=== PATIENT | male | born 1980 | race Caucasian/White ===

== ENCOUNTER 2021-08-13 15:44 | Inpatient (IN) | payer OTHER, SELFPAY ==
[2021-08-13] VITALS (10 sets, daily range): BP systolic 140–172; BP diastolic 90–103; PULSE 85–117; RESP 16–22; TEMP 36.6–37.3; O2SAT 93–99; BMI 28.0; BMI 26.3
--- NOTE | 2021-08-13 15:56 | EDS_ITS ---
HPI History of Present Illness Chief Complaint: Trauma Informant: patient Onset/Context/Timing Onset: Today Location of pain/injuries: Right ankle Current Severity: Moderate Maximum Severity: Severe Narrative Narrative: Patient presents via EMS after right ankle injury. Patient was playing baseball and slid into second base fracturing his right ankle. He states initially his foot was laying 90 degrees to the normal axis of the foot. He is in an air splint at the time of arrival to the emergency room. He has been given 100 mcg of fentanyl. Patient denies any other injury. [facility] Medical History (Updated 08/13/21 @ 21:03 by Radha Bishop) High cholesterol Medical History no medical history Home Medications NK 08/13/21 [History Last Taken Unknown] Allergy/AdvReac Type Severity Reaction Status Date / Time No Known Allergies Allergy Verified 08/13/21 15:47 Surgical History H/O hernia repair Surgical History no surgical history Social History Smoking Status: Never smoker ROS ROS ED Constitutional Constitutional ED: Denies chills or fever(s) Eyes Eyes: Denies change in vision ENT ENT ED: Denies sore throat Cardiovascular Cardiovascular: Denies chest pain Respiratory/Chest Respiratory/Chest: Denies cough or dyspnea Gastrointestinal Gastrointestinal: Denies abdominal pain, nausea or vomiting Genitourinary Genitourinary ED: Denies dysuria Musculoskeletal Musculoskeletal: Reports arthralgias; Denies back pain or neck pain Integumentary Denies rash Neurologic Neurologic: Denies headache(s) Allergic/Immunologic Allergic/Immunologic ED: Denies urticaria EXAM Physical Exam Const Vital Signs: 08/13/21 15:45 08/13/21 16:02 08/13/21 17:41 Temperature 98.8 F Temperature Source Oral Pulse Rate 99 117 H Pulse Rate [1 (Initial Baseline)] Pulse Rate [2] Pulse Rate [3] Pulse Rate [4] Respiratory Rate 18 20 H Respiratory Rate [1 (Initial Baseline)] Respiratory Rate [2] Respiratory Rate [3] Respiratory Rate [4] Respiratory Effort Normal Non-Labored Blood Pressure 151/96 H 172/98 H Blood Pressure [3] Blood Pressure [4] Blood Pressure Mean 114 Pulse Ox 97 97 Oxygen Delivery Method Room Air Oxygen Delivery Method [1 (Initial Baseline)] Oxygen Delivery Method [2] Oxygen Delivery Method [3] Oxygen Delivery Method [4] Oxygen Flow Rate (L/min) Oxygen Flow Rate (L/min) [1 (Initial Baseline)] Oxygen Flow Rate (L/min) [2] Oxygen Flow Rate (L/min) [3] Oxygen Flow Rate (L/min) [4] 08/13/21 17:45 08/13/21 18:00 08/13/21 18:05 Temperature Temperature Source Pulse Rate Pulse Rate [1 (Initial Baseline)] 117 H Pulse Rate [2] 106 H Pulse Rate [3] 97 Pulse Rate [4] 95 Respiratory Rate Respiratory Rate [1 (Initial Baseline)] 22 H Respiratory Rate [2] 18 Respiratory Rate [3] 18 Respiratory Rate [4] 17 Respiratory Effort Blood Pressure Blood Pressure [3] 142/92 H Blood Pressure [4] 145/100 H Blood Pressure Mean Pulse Ox Oxygen Delivery Method Nasal Cannula Room Air Oxygen Delivery Method [1 (Initial Baseline)] Nasal Cannula Oxygen Delivery Method [2] Nasal Cannula Oxygen Delivery Method [3] Nasal Cannula Oxygen Delivery Method [4] Nasal Cannula Oxygen Flow Rate (L/min) 2 Oxygen Flow Rate (L/min) [1 (Initial Baseline)] 2 Oxygen Flow Rate (L/min) [2] 2 Oxygen Flow Rate (L/min) [3] 2 Oxygen Flow Rate (L/min) [4] 2 08/13/21 18:10 08/13/21 19:00 08/13/21 19:15 Temperature Temperature Source Pulse Rate 104 H Pulse Rate [1 (Initial Baseline)] Pulse Rate [2] Pulse Rate [3] Pulse Rate [4] Respiratory Rate 17 18 Respiratory Rate [1 (Initial Baseline)] Respiratory Rate [2] Respiratory Rate [3] Respiratory Rate [4] Respiratory Effort Blood Pressure 157/90 H Blood Pressure [3] Blood Pressure [4] Blood Pressure Mean 112 Pulse Ox 98 Oxygen Delivery Method Room Air Room Air Room Air Oxygen Delivery Method [1 (Initial Baseline)] Oxygen Delivery Method [2] Oxygen Delivery Method [3] Oxygen Delivery Method [4] Oxygen Flow Rate (L/min) Oxygen Flow Rate (L/min) [1 (Initial Baseline)] Oxygen Flow Rate (L/min) [2] Oxygen Flow Rate (L/min) [3] Oxygen Flow Rate (L/min) [4] Positive well nourished and well developed General Appearance ED: well developed HEENT atraumatic Eyes PERRL and EOMs intact bilaterally Neck full ROM Chest Wall inspection of chest normal and palpation of chest normal Resp normal respiratory effort and clear to auscultation bilaterally Cardio regular rhythm Rate: regular rate GI normal to inspection, nondistended, normoactive bowel sounds and non-tender Palpation: soft Extremity Extremity Narrative: Right foot rotated laterally. Deformity noted to the medial malleolus. Patient able to wiggle toes. Palpable distal pulse and good cap refill. Neuro oriented x3 Sensorium / Orientation: alert MDM MDM MDM Narrative Medical decision making narrative: Patient made n.p.o. on arrival. Right ankle x-rays obtained. Radiography Diagnostic Testing: Clinical Impression(s) from Imaging Studies Ankle X-Ray 08/13/21 16:05 IMPRESSION: Trimalleolar fracture with tibiotalar joint widening. Electronically Signed: Gregorio Martinez MD ([facility]) at 16:22 EDT , Ankle X-Ray 08/13/21 18:00 IMPRESSION: Improved alignment of the tibiotalar joint since prior study. Fractures are not as well seen with splint in place. Electronically Signed: Gregorio Martinez MD ([facility]) at 18:18 EDT , Treatment and Re-Evaluation Narrative: Right ankle x-ray does confirm trimalleolar ankle fracture per my interpretation. There is significant widening of the mortise joint. Patient is given morphine and Zofran as the fentanyl he was given prehospital is starting to wean. Patient is consented for procedural sedation and splinting. Light sedation given with a total of 60 mg of propofol. Posterior plus sugar-tong splint placed in the right lower extremity. Following splint application patient can wiggle toes and has good cap refill. Repeat x-rays reveal good alignment of the fracture. I spoke with Dr. Menard, on-call for podiatry. She presented to the emergency room to evaluate the patient. She will admit the patient to the hospital with plan to surgically repair his ankle tomorrow. Discharge Plan Dx/Rx/DC Orders Clinical Impression: Closed trimalleolar fracture of ankle Disposition Disposition: Acute Care Hospital [facility] Discharge Date/Time: 08/13/21 20:41
--- NOTE | 2021-08-13 16:05 | RAD_ITS ---
STUDY: X-RAY - RIGHT ANKLE REASON FOR EXAM: Male, 41 years old. PT PLAYING SOFTBALL SLID INTO SECOND BASE INJURING RIGHT ANKLE TECHNIQUE: 3 view(s) of the ankle. COMPARISON: None. FINDINGS: Obliquely oriented fracture of the distal fibula, 5.7 cm above the tibiotalar joint with mild (2.5 mm) displacement. Transverse fracture of the base of the medial malleolus with approximately 4.1 mm of displacement. Osseous density overlying the posterior distal tibia likely represents additional longitudinal fracture. Widening of the tibiotalar joint particularly along the anterior margin. Normal visualized talus and calcaneus. The visualized subtalar, talonavicular, calcaneocuboid and tarsal articulations are normal. Diffuse soft tissue swelling. RAD/Ankle min 3 Views IMPRESSION: Trimalleolar fracture with tibiotalar joint widening. Electronically Signed: Gregorio Martinez MD ([facility]) at 16:22 EDT ,
[2021-08-13] MEDS: Ondansetron 4 MG/2 ML Vial IV (17:32)
[2021-08-13] MEDS: Morphine 4 MG/ML Syringe IV (17:32)
[2021-08-13] MEDS: Propofol 200 MG/20 ML Vial IV BOLUS (17:46)
--- NOTE | 2021-08-13 18:00 | RAD_ITS ---
STUDY: X-RAY - RIGHT ANKLE REASON FOR EXAM: Male, 41 years old. fracture - post splint TECHNIQUE: 2 view(s) of the ankle. COMPARISON: Earlier today FINDINGS: Distal fibular fracture stable alignment. Normal medial and lateral malleoli. Improved alignment of the tibiotalar articulation. The medial malleolus fracture seen previously is not clearly identified. Normal visualized talus and calcaneus. The visualized subtalar, talonavicular, calcaneocuboid and tarsal articulations are normal. Splint material noted. RAD/Ankle 2 Views IMPRESSION: Improved alignment of the tibiotalar joint since prior study. Fractures are not as well seen with splint in place. Electronically Signed: Gregorio Martinez MD ([facility]) at 18:18 EDT ,
--- NOTE | 2021-08-13 19:42 | PCM.HP.STD ---
HPI - General General Date of Admission: 08/13/21 HPI Narrative RADHA SLAUGHTER, is a 41 M who presents for right ankle injury he sustained while sliding into second base earlier today at 15:30 pm. His foot was in a forced dorsiflexion external rotation position upon the ankle at the time of impact. He denies any breaks in the skin. His ankle was immediately reset and a temporary splint and he presented to the emergency room. His pain is controlled at a 3 out of 10 at this time and is aching. He denies lack of sensation. He denies prior claudication. He denies known past medical history however he reports he has not been to a doctor in a long time even for a wellness check. He reports he was previously worked up for anxiety but not currently. He denies known cardiac disease or family cardiac history. He denies prior complications with anesthesia when he had a hernia repaired. [facility] Medical History no medical history Home Medications NK 08/13/21 [History Last Taken Unknown] Allergy/AdvReac Type Severity Reaction Status Date / Time No Known Allergies Allergy Verified 08/13/21 15:47 Surgical History H/O hernia repair Surgical History no surgical history Social History Smoking Status: Never smoker ROS Constitutional Constitutional: Denies chills or fever(s) ENT HEENT: Denies sore throat Cardiovascular Cardiovascular: Reports chest pain; Denies claudication Respiratory/Chest Respiratory/Chest: Denies cough or dyspnea Gastrointestinal Gastrointestinal: Denies nausea or vomiting Genitourinary Genitourinary: Denies dysuria Musculoskeletal Musculoskeletal: Reports extremity pain and joint pain; Denies back pain, numbness, radiating pain into limb or tingling Integumentary Integumentary: Denies wounds Psychiatric Psychiatric: Reports anxiety Allergic/Immunologic Allergic/Immunologic: Denies urticaria Vital Signs Vital Signs Vital Signs: 08/13/21 15:45 08/13/21 16:02 08/13/21 17:41 Temperature 98.8 F Temperature Source Oral Pulse Rate 99 117 H Pulse Rate [1 (Initial Baseline)] Pulse Rate [2] Pulse Rate [3] Pulse Rate [4] Respiratory Rate 18 20 H Respiratory Rate [1 (Initial Baseline)] Respiratory Rate [2] Respiratory Rate [3] Respiratory Rate [4] Respiratory Effort Normal Non-Labored Blood Pressure 151/96 H 172/98 H Blood Pressure [3] Blood Pressure [4] Blood Pressure Mean 114 Pulse Ox 97 97 Oxygen Delivery Method Room Air Oxygen Delivery Method [1 (Initial Baseline)] Oxygen Delivery Method [2] Oxygen Delivery Method [3] Oxygen Delivery Method [4] Oxygen Flow Rate (L/min) Oxygen Flow Rate (L/min) [1 (Initial Baseline)] Oxygen Flow Rate (L/min) [2] Oxygen Flow Rate (L/min) [3] Oxygen Flow Rate (L/min) [4] 08/13/21 17:45 08/13/21 18:00 08/13/21 18:05 Temperature Temperature Source Pulse Rate Pulse Rate [1 (Initial Baseline)] 117 H Pulse Rate [2] 106 H Pulse Rate [3] 97 Pulse Rate [4] 95 Respiratory Rate Respiratory Rate [1 (Initial Baseline)] 22 H Respiratory Rate [2] 18 Respiratory Rate [3] 18 Respiratory Rate [4] 17 Respiratory Effort Blood Pressure Blood Pressure [3] 142/92 H Blood Pressure [4] 145/100 H Blood Pressure Mean Pulse Ox Oxygen Delivery Method Nasal Cannula Room Air Oxygen Delivery Method [1 (Initial Baseline)] Nasal Cannula Oxygen Delivery Method [2] Nasal Cannula Oxygen Delivery Method [3] Nasal Cannula Oxygen Delivery Method [4] Nasal Cannula Oxygen Flow Rate (L/min) 2 Oxygen Flow Rate (L/min) [1 (Initial Baseline)] 2 Oxygen Flow Rate (L/min) [2] 2 Oxygen Flow Rate (L/min) [3] 2 Oxygen Flow Rate (L/min) [4] 2 08/13/21 18:10 08/13/21 19:00 08/13/21 19:15 Temperature Temperature Source Pulse Rate 104 H Pulse Rate [1 (Initial Baseline)] Pulse Rate [2] Pulse Rate [3] Pulse Rate [4] Respiratory Rate 17 18 Respiratory Rate [1 (Initial Baseline)] Respiratory Rate [2] Respiratory Rate [3] Respiratory Rate [4] Respiratory Effort Blood Pressure 157/90 H Blood Pressure [3] Blood Pressure [4] Blood Pressure Mean 112 Pulse Ox 98 Oxygen Delivery Method Room Air Room Air Room Air Oxygen Delivery Method [1 (Initial Baseline)] Oxygen Delivery Method [2] Oxygen Delivery Method [3] Oxygen Delivery Method [4] Oxygen Flow Rate (L/min) Oxygen Flow Rate (L/min) [1 (Initial Baseline)] Oxygen Flow Rate (L/min) [2] Oxygen Flow Rate (L/min) [3] Oxygen Flow Rate (L/min) [4] Weight Weight: 78.8 kg Body Mass Index (BMI) 28.0 Physical Exam Const alert and oriented x3 General Appearance: cooperative HEENT normocephalic Extremity Extremity Narrative: No calf tenderness; negative olmos sign bilateral palpable dp pulse bilateral and palpable left PT Capillary fill time is less than 3 seconds to all 10 digits Mild edema right lower extremity Rectus right lower extremity position is noted with posterior mold splint and sugar-tong in place General Extremity: edema and no tenderness to palpation of joints or extremities; Negative for cyanosis Skin Skin Narrative: No strikethrough or drainage adjacent to splint Per emergency room physician evaluation there were no skin breaks or fracture blisters or skin envelope compromise at the time the fracture was reset and splinted General Skin Exam: Negative for erythema Neuro Neuro Narrative: Epicritic sensation is intact to all digits and forefoot dermatomes equal and symmetrical to bilateral lower extremities Psych cooperative and affect normal Results Radiology Impression Ankle X-Ray 08/13/21 16:05 IMPRESSION: Trimalleolar fracture with tibiotalar joint widening. Electronically Signed: Gregorio Martinez MD ([place]) at 16:22 EDT , Ankle X-Ray 08/13/21 18:00 IMPRESSION: Improved alignment of the tibiotalar joint since prior study. Fractures are not as well seen with splint in place. Electronically Signed: Gregorio Martinez MD ([facility]) at 18:18 EDT , Assessment & Plan Assessment/Plan (1) Closed trimalleolar fracture of ankle: (2) Right ankle pain: PLAN: I reviewed and discussed his case. X-rays demonstrate complex right ankle fracture consistent with try malleolus. There is a fibula fracture above the ankle mortise level, remarkable widening between the tibia and fibula supporting syndesmosis disruption, and medial malleolus oblique fracture. CT scan ordered to confirm pattern for surgical planning. We discussed treatment options and I recommend surgical intervention because this is a very unstable fracture pattern and this will give him his best chance at maintaining a functional limb in the future. His fracture is already been reduced and is secured in a right lower extremity splint; to keep clean and intact until surgery tomorrow. To maintain a nonweightbearing status. To ice and elevate. Pain medications have also been ordered. Preoperative diagnostic data will be ordered including CBC and CMP. He only reports a significant past medical history of prior anxiety, however he reports he has not been to the doctor in a long time. Hospitalist consultation for preoperative assessment will be requested. Preoperative indications, planned procedure, benefits, risk, anticipated healing time and management were reviewed. The patient understands and elects proceed with surgery at this time. No guarantees were made. The patient understands risk and complications include but are not limited to following: pain, swelling, scarring, need for further surgery, tendon contracture, transfer lesion, hardware failure, arthritis, need for further surgery, delayed or nonhealing, infection, blood clot, allergic reaction, loss of limb, function, or life. The informed surgical limb and consent will be signed. He will be n.p.o. at midnight. Fluids ordered preoperative. Anticipated anesthesia is general and regional versus spinal. This case was discussed with anesthesiologist, Dr. Centeno. The surgery is tentatively scheduled for tomorrow 08-14-2021 at 8 AM. I answered all the patient's questions. Please do not hesitate to call if you have any questions. Christine Menard DPM, FACF[facility] [phone]
--- NOTE | 2021-08-13 19:58 | CT_ITS ---
EXAM: CT RIGHT LOWER EXTREMITY WITHOUT INTRAVENOUS CONTRAST, ANKLE CLINICAL INDICATION: ankle fracture TECHNIQUE: Helically acquired images were obtained of the right ankle without intravenous contrast. 2-D reformats were performed by the technologist. This CT exam was performed using one or more of the following dose reduction techniques: automated exposure control, adjustment of the mA and/or kV according to patient size, and/or use of iterative reconstruction technique. This report was created using ebindle report generation technology. RADIATION DOSE: CTDIvol = 19.84 mGy, DLP = 839.29 mGy-cm COMPARISON: X-ray earlier today. FINDINGS: BONES/JOINTS: Nondisplaced fracture the base of the medial malleolus. Nondisplaced fracture of the posterior distal tibia best seen on image 74 of series 602. Obliquely oriented fracture of the distal fibula with medial butterfly fragment (image 71 series 601). Approximately 4.8 mm of displacement. No dislocation. SOFT TISSUES: Diffuse soft tissue swelling medial more than lateral. No radiopaque foreign body. CT/Extremity Lower without Contra IMPRESSION: Trimalleolar fracture, as above. Electronically Signed: Gregorio Martinez MD ([facility]) at 20:51 EDT ,
--- NOTE | 2021-08-13 20:57 | PCM.PN.HOSP ---
Subjective Subjective 41-year-old male presented to the hospital with a right ankle fracture while he was playing baseball and sliding into second base. He has no medical history and takes no medications. His blood pressure is little bit elevated but this is likely secondary to pain Objective Data Objective Data Vital Signs: Vital Signs Temp Pulse Resp BP Pulse Ox 97.8 F 90 18 151/103 H 93 08/13/21 20:06 08/13/21 20:06 08/13/21 20:06 08/13/21 20:06 08/13/21 20:06 Oxygen Flow Rate (L/min) [4] 2 Oxygen Flow Rate (L/min) [3] 2 Oxygen Flow Rate (L/min) [2] 2 Oxygen Flow Rate (L/min) [1 ( 2 Initial Baseline)] Oxygen Flow Rate (L/min) 2 Oxygen Delivery Method [4] Nasal Cannula Oxygen Delivery Method [3] Nasal Cannula Oxygen Delivery Method [2] Nasal Cannula Oxygen Delivery Method [1 ( Nasal Cannula Initial Baseline)] Oxygen Delivery Method Room Air Weight: 163 lb 2.273 oz Body Mass Index (BMI) 26.3 Lab / Micro Data Result Diagrams: 08/13/21 20:49 08/13/21 20:49 Radiography Diagnostic Testing: Radiology Impression Ankle X-Ray 08/13/21 16:05 IMPRESSION: Trimalleolar fracture with tibiotalar joint widening. Electronically Signed: Gregorio Martinez MD ([place]) at 16:22 EDT , Ankle X-Ray 08/13/21 18:00 IMPRESSION: Improved alignment of the tibiotalar joint since prior study. Fractures are not as well seen with splint in place. Electronically Signed: Gregorio Martinez MD ([facility]) at 18:18 EDT , Lower Extremity CT 08/13/21 19:58 IMPRESSION: Trimalleolar fracture, as above. Electronically Signed: Gregorio Martinez MD ([facility]) at 20:51 EDT , Physical Exam Const alert and oriented x3 General Appearance: cooperative HEENT normocephalic and moist oral mucous membranes Eyes PERRL, EOMs intact bilaterally and conjunctivae normal Neck supple and no JVD Resp normal respiratory effort, no retractions, no use of accessory muscles and clear to auscultation bilaterally Auscultation: Negative for crackles, rales, rhonchi or wheezes Cardio regular rate, regular rhythm, S1 normal heart sound, S2 normal heart sound and no murmurs GI soft to palpation, non-tender and non-distended; Negative for hepatosplenomegaly Extremity no clubbing, cyanosis or edema Extremity Narrative: Right ankle is splinted Skin no rashes or lesions noted Neuro no focal motor deficits and no sensory deficits noted Psych affect normal Appearance: appropriate Assessment & Plan Assessment/Plan (1) Closed trimalleolar fracture of ankle: PLAN: 1. Right closed trimalleolar fracture of his ankle ? Pain management per primary ? Plan for operative repair in the morning ? PT/OT ? He is stable for surgery, will monitor his blood pressure likely due to pain however he does not see a doctor regularly ? Check a vitamin D DVT: SCDs Charges/Coding Visit Charges Inpatient E&M: 42889 Subs Hosp L2
[2021-08-13 21:00] LABS: Absolute Lymphocyte Count 1.13 X10^3/uL (0.83-4.51); Absolute Neutrophil Count 11.5 X10^3/uL (2.0-7.7); Basophil# 0.05 X10^3/uL; Basophil% 0.4 % (0-1); Eosinophil# 0.01 X10^3/uL; Eosinophils% 0.1 % (0-5); Hematocrit 42.4 % (40-54); Hemoglobin 14.6 g/dL (13.0-16.5); Lymphocyte # 1.13 X10^3/ul (0.83-4.51); Lymphocyte % 8.5 % (19-41); Mean Corp Hgb Conc 34.4 g/dL (32-36); Mean Corpuscular Hgb 30.8 pg (27.0-32.0); Mean Corpuscular Volume 89.5 fL (80-94); Mean Platelet Vol. 9.9 fl (6.2-12.0); Monocyte% 4.5 % (0-10); NRBC Flagged by Analyzer 0 % (0-5); Neutrophil # 11.51 X10^3/uL (2.7-7.7); Neutrophil % 86.2 % (47-70); Platelet Count 334 K/mm3 (150-450); RBC Distribution Width CV 12.3 % (11.6-14.6); RBC Distribution Width SD 40.5 fl (35.1-43.9); Red Blood Count 4.74 M/mm3 (4.6-6.2); White Blood Count 13.3 K/mm3 (4.4-11.0)
[2021-08-13 21:30] LABS: ALB/GLOB Ratio 1.3 RATIO (0.9-2.4); AST(SGOT) 17 U/L (15-37); Alanine Aminotransfer ALT/SGPT 31 U/L (16-61); Albumin, Serum 4.1 g/dL (3.2-5.0); Alkaline Phosphatase 67 U/L (45-117); Anion Gap 5 (5-15); BUN 14 mg/dL (7-18); BUN/Creat Ratio 13.7 RATIO (10-20); Chloride 109 mmol/L (98-107); Creatinine, Serum 1.02 mg/dL (0.70-1.30); EST Glomerular Filtration Rate 85 mL/min (>60); Est Glom Filt Rate - Afr Amer 103 mL/min (>60); Estimated Creatinine Clearance 85.14 ml/min; Globulin 3.2 g/dL (2.2-4.2); Glucose 120 mg/dL (74-106); Potassium 3.9 mmol/L (3.5-5.1); Protein, Total 7.3 g/dL (6.4-8.2); Sodium Level 140 mmol/L (136-145)
[2021-08-14] VITALS (11 sets, daily range): BP systolic 120–149; BP diastolic 82–98; PULSE 73–100; RESP 16–18; TEMP 36.4–37; O2SAT 93–99; BMI 26.2
[2021-08-14] MEDS: Acetaminophen 325 MG Tablet 650 MG PO (00:59)
[2021-08-14] MEDS: 0.9% Saline Lock 10 ML Syringe IV ×3 (01:00→13:37)
[2021-08-14] MEDS: Lactated Ringers 1,000 ML 80 ML IV ×2 (06:38→09:01)
--- NOTE | 2021-08-14 07:54 | NURSING ---
Pt left room via bed with Cristina FILLING MACHINE SET UP MECHANIC and brought down to surgery at this time with is at his side as well.
--- NOTE | 2021-08-14 07:55 | PN.HOSP_ITS ---
Subjective Subjective Patient seen and examined. He was seen after he had ankle surgery today. Pain was well controlled. Review of systems was otherwise negative. Objective Data Objective Data Vital Signs: Vital Signs Temp Pulse Resp BP Pulse Ox 98.6 F 84 18 149/94 H 99 08/14/21 07:49 08/14/21 07:49 08/14/21 07:49 08/14/21 07:49 08/14/21 07:49 Oxygen Flow Rate (L/min) [4] 2 Oxygen Flow Rate (L/min) [3] 2 Oxygen Flow Rate (L/min) [2] 2 Oxygen Flow Rate (L/min) [1 ( 2 Initial Baseline)] Oxygen Flow Rate (L/min) 2 Oxygen Delivery Method [4] Nasal Cannula Oxygen Delivery Method [3] Nasal Cannula Oxygen Delivery Method [2] Nasal Cannula Oxygen Delivery Method [1 ( Nasal Cannula Initial Baseline)] Oxygen Delivery Method Room Air Weight: 163 lb 2.273 oz Body Mass Index (BMI) 26.2 Intake & Output: Intake and Output for Last 24 Hours 08/12/21 08/13/21 08/14/21 23:59 23:59 23:59 Output Total 300 / 300 Balance -300 / -300 Lab / Micro Data Result Diagrams: 08/13/21 20:49 08/13/21 20:49 Labs: Laboratory Results - last 24 hr 08/13/21 20:49: WBC 13.3 H, RBC 4.74, Hgb 14.6, Hct 42.4, MCV 89.5, MCH 30.8, MCHC 34.4, RDW Std Deviation 40.5, RDW Coeff of John 12.3, Plt Count 334, MPV 9.9, Immature Gran % (Auto) 0.300, Neut % (Auto) 86.2 H, Lymph % (Auto) 8.5 L, Carver % (Auto) 4.5, Eos % (Auto) 0.1, Baso % (Auto) 0.4, Absolute Neuts (auto) 11.5 H, Absolute Lymphs (auto) 1.13, Nucleated RBC % 0 08/13/21 20:49: Sodium 140, Potassium 3.9, Chloride 109 H, Carbon Dioxide 26.0, Anion Gap 5, BUN 14, Creatinine 1.02, Estim Creat Clear Calc 85.14, Est GFR (MDRD) Af Amer 103, Est GFR (MDRD) Non-Af 85, BUN/Creatinine Ratio 13.7, Glucose 120 H, Calcium 9.0, Total Bilirubin 0.50, AST 17, ALT 31, Alkaline Phosphatase 67, Total Protein 7.3, Albumin 4.1, Globulin 3.2, Albumin/Globulin Ratio 1.3 Micro: Microbiology 08/14/21 Unknown Nasal Secretion SARS-CoV-2 Antigen (Rapid) - Final Radiography Diagnostic Testing: Radiology Impression Ankle X-Ray 08/13/21 16:05 IMPRESSION: Trimalleolar fracture with tibiotalar joint widening. Electronically Signed: Gregorio Martinez MD ([facility]) at 16:22 EDT , Ankle X-Ray 08/13/21 18:00 IMPRESSION: Improved alignment of the tibiotalar joint since prior study. Fractures are not as well seen with splint in place. Electronically Signed: Gregorio Martinez MD ([facility]) at 18:18 EDT , Lower Extremity CT 08/13/21 19:58 IMPRESSION: Trimalleolar fracture, as above. Electronically Signed: Gregorio Martinez MD ([facility]) at 20:51 EDT , Physical Exam Const alert, oriented x3 and no apparent distress General Appearance: cooperative HEENT normocephalic, head/scalp atraumatic and moist oral mucous membranes Head and Scalp: normocephalic Eyes PERRL, EOMs intact bilaterally and conjunctivae normal Neck no lymphadenopathy, supple and no JVD Resp normal respiratory effort, no retractions, no use of accessory muscles and clear to auscultation bilaterally Auscultation: Negative for crackles, rales, rhonchi or wheezes Cardio regular rate, regular rhythm, S1 normal heart sound, S2 normal heart sound and no murmurs GI normal to inspection, nondistended, normoactive bowel sounds, soft to palpation, non-tender and non-distended; Negative for hepatosplenomegaly Extremity no clubbing, cyanosis or edema Extremity Narrative: Right lower extremity is in splint and bandaged Peripheral Pulses: Yes pulses 2+ throughout Skin no rashes or lesions noted Neuro oriented x3 and CN's II-XII intact bilaterally Sensorium / Orientation: awake and alert Psych affect normal Appearance: appropriate Assessment & Plan Assessment/Plan (1) Closed trimalleolar fracture of ankle: PLAN: #RIght closed trimalleolar ankle fracture * as a result of patient playing soft ball * s/p ORIF of right ankle fracture * on IV morphine, PO tylenol and PO oxycodone for pain * PT/OT On board. Fall precautions. * Podiatry on board. * for surgery today * #Elevated blood pressure * no clear diagnosis of hypertension. Pain may also be contributing * BP is 149/94 this morning. had improved markedly once pain was well controlled. * will trend. * IV hydralazine prn. If pain improves and BP remains elevated, will consider starting oral BP meds * DVT prophylaxis: lovenox Charges/Coding Visit Charges Inpatient E&M: 75775 Subs Hosp L2
--- NOTE | 2021-08-14 08:00 | RAD_ITS ---
STUDY: X-RAY - RIGHT ANKLE REASON FOR EXAM: Male, 41 years old. RIGHT ANKLE FX TECHNIQUE: 3 view(s) of the ankle. COMPARISON: 08/13/2021 FINDINGS: Fluoroscopy the right ankle was utilized and operating room during open reduction internal fixation of fractures the medial malleolus of the tibia and the distal shaft of the fibula and 9 images are submitted for interpretation.. RAD/Ankle min 3 Views IMPRESSION: Fluoroscopy during open reduction internal fixation of fractures the medial malleolus and distal fibula. Electronically Signed: Ronnie Boyce MD at 10:24 EDT ,
[2021-08-14] MEDS: Cefazolin 2 GM in 0.9% Normal Saline 100 ML IV (08:21)
--- NOTE | 2021-08-14 10:31 | PCM.OPRPT ---
Problems Associated Problem List Diagnoses (1) Closed trimalleolar fracture of ankle: (2) Right ankle pain: Report of Operation Date of Procedure: 08/14/21 Pre-Operative Diagnosis: Trimalleolus ankle fracture right lower extremity Post-Operative Diagnosis: Trimalleolus ankle fracture right lower extremity Surgery/Procedure Performed:: Open reduction internal fixation of right ankle fracture Description of Surgical Findings:: Hemostasis: Well-padded pneumatic right thigh tourniquet, 315 mmHg, 94 minutes Materials: one 8-hole Arthrex straight recon fibula plate, 2 partially-threaded 3.0 cannulated screws (40 mm), three 3.5 cortical screws, one 3.5 locking screw, two Arthrex syndesmosis fiber wires, 2-0 and 3-0 Vicryl, 3-0 nylon Complications: None The patient tolerated the procedure and anesthesia well. The patient was transported to the PACU with vital signs stable and vascular status intact to the surgical limb. To ice and elevate for pain and inflammation management. Postoperative x-rays were reviewed prior to leaving the operating room. These demonstrated for reduction of the deformity and fracture fragments with placement of hardware. Hardware is in desired trajectory and position. There are no acute injuries. The ankle mortise is well aligned. Postoperative orders were entered electronically. He will be transferred back to the medical surgical floor for continued postoperative pain control. Surgeon: Christine Menard instrument repair technician: None (Waylon Murray, PGY1, DPM) Type of Anesthesia: General/Regional Anesthesiologist: Carlos Centeno Specimen's removed: none Drains: none Estimated Blood Loss (mL): <100mL Description of Procedure: Indications: This 41-year-old male with no reported significant past medical history was sliding into second place while playing baseball and sustained a pronation external rotation dorsiflexion right ankle injury resulting in a trimalleolus ankle fracture. The date of injury was 08-13-2021. This was a closed injury. The fracture was reduced and he was admitted for surgical intervention. His neurovascular status is intact. He has a comminuted fibula fracture above the ankle joint level that has a butterfly fragment. He has disruption of the syndesmosis with widening between the tibia and fibula. There is also an oblique medial malleolus fracture and a very small posterior malleolus fracture (less than 15%). This is considered an unstable fracture pattern. He is unable to bear weight. He is a very active person with work and sports and surgical intervention was recommended. The preoperative indications, planned procedure, possible benefits, risks, complications, and anticipated healing time and management were discussed in detail the patient. He understands and elects to proceed with surgery at this time. He understands complications may include but are not limited to the following: Pain, swelling, scarring, delayed or non-healing of the skin or bone, hardware failure, infection, under or overcorrection, need for additional surgery, blood clot, allergic reaction, loss of limb, function, life, numbness, chronic pain syndrome. I answered all his questions. The informed surgical consent and the surgical limb were signed. Medical evaluation preoperatively was performed by hospitalist. It is noted he does have some hypertension however this is likely secondary to pain. His preoperative diagnostic data was also reviewed without gross abnormalities. Vitamin D screen was also initiated. Procedure in detail: The patient was transferred to the operating room via cart and placed on the operating table in supine position. Final verification of the patient, surgery, and limb designation was performed via the timeout procedure. A well-padded pneumatic thigh tourniquet was placed on the right lower extremity. The patient was given 2 g of IV Ancef prior to the surgical procedure initiation. General anesthesia was initiated by the anesthesia team. A right lower extremity regional block was also provided by the anesthesia team. The right lower extremity was prepped and draped in the usual aseptic manner. Exsanguination was performed with an Esmarch bandage and the tourniquet was inflated at this time. Attention was first directed to the medial malleolus in which a small incision was made in the skin and the fracture fragment was identified and gently mobilized. The periosteal lipping was reflected out of the fracture fragment site and manual manipulation of this fragment site was performed. Intraoperative fluoroscopy was used to confirm improved rectus mortise and fracture fragment alignment in multiple views. This was next secured in place with two 3.0 cannulated screws. His bone was firm and solid fixation was achieved as the screws were applied utilizing lag technique. Solid fixation was also achieved clinically. Next, attention was directed to the lateral aspect of the ankle in which a 7 cm linear incision was made through the skin. Blunt dissection was performed down to the fracture fragment taking care to preserve the periosteum. The fracture hematoma was identified and the fracture site was gently mobilized. A bone reducing forceps was used to obtain anatomic reduction. A fibular reconstruction plate was applied and used to distract this out to full length. This was temporarily secured with BB tacks. This was next secured with proximal distal screws (locking and nonlocking). Next attention was focused on repairing the syndesmosis with 2 syndesmosis fiber tapes under fluoroscopic guidance. Both were applied external to the plate and this was tightened with hand tightness with the ankle in a neutral position. Radiographically all hardware was checked and the desired trajectory, length, and position with fixated fracture position was confirmed. A fibular transitional stress test, cotton test, stress eversion, and stress dorsiflexion external rotation test was next performed and there was no syndesmosis gapping. The posterior malleolus fracture fragment reduced into anatomic alignment and additional fixation at the site was not pursued. All wound sites were irrigated with normal saline. Deep closure was achieved with 2-0 and 3-0 Vicryl to cover all hardware. The tourniquet was deflated and brisk capillary refill time was noted to all digits of the left lower extremity. No pulsatile bleeding was noted. Pressure was applied to maintain hemostasis and minimal electrocauterization was needed. The skin was reapproximated with 4-0 nylon utilizing no touch technique with simple and horizontal mattress techniques. Formal postoperative x-rays will be obtained postoperatively. A postoperative dressing consisting of Adaptic, gauze, abdominal pads, Kerlix, sterile webril, and Kerlix was applied in a protective manner. Next, a posterior mold splint was applied with the foot and ankle in a rectus position and this was secured gently with Reza wraps. After procedure: The patient tolerated the procedure and anesthesia well. He was transported to the PACU with vital signs stable and vascular status intact to the right lower extremity. He will be transferred back to the medical surgical floor upon continued stability for pain control and medical management. All of his postoperative orders were entered electronically. He was advised to maintain a strict nonweightbearing right lower extremity status. To ice and elevate for pain and inflammation management. Medical management, DVT prophylaxis, and pain management per primary team is appreciated. Toradol, oxycodone, and morphine are ordered if needed. Will consider enoxaparin tomorrow. His vitamin D test is pending and we will see if supplementation is appropriate. He will also work with physical therapy with the use of an assistive device prior to discharge home with his family. All of his postoperative orders were entered electronically. Christine Menard DPM, [facility] [place] Grafts/Implants Used: arthrex hardware Complications none Admit VTE Documentation VTE Present on Admission: No VTE Mechan Device Prophylaxis: SCD's VTE Pharm Prophylaxis ordered?: Yes
--- NOTE | 2021-08-14 10:32 | RAD_ITS ---
STUDY: X-RAY - RIGHT ANKLE REASON FOR EXAM: Male, 41 years old. s/p ORIF ankle fracture TECHNIQUE: 3 view(s) of the ankle. COMPARISON: 08/13/2021 FINDINGS: Interval open reduction internal fixation of fracture the medial malleolus the tibia with 2 screws and fracture of the distal shaft of the fibula with a lateral plate and screws. Interval of the distal syndesmosis stabilization. Normal tibiotalar articulation and ankle mortise. Normal visualized talus and calcaneus. The visualized subtalar, talonavicular, calcaneocuboid and tarsal articulations are normal. Fiberglas cast which obscures soft tissue and bony detail. RAD/Ankle min 3 Views IMPRESSION: Interval open reduction internal fixation of fractures the medial malleolus and distal fibula. Electronically Signed: Ronnie Boyce MD at 11:38 EDT ,
--- NOTE | 2021-08-14 11:47 | NURSING ---
Arrived back to floor from Recovery room.
[2021-08-14] MEDS: Ondansetron 4 MG/2 ML Vial IV (13:37)
[2021-08-14] MEDS: oxyCODONE 5 MG Tablet 10 MG PO ×2 (14:42→18:52)
--- NOTE | 2021-08-14 16:04 | CPS ---
started by nursing
[2021-08-14] MEDS: Ketorolac 30 MG/ML Syringe IM (20:53)
[2021-08-15 01:17] VITALS: BP 131/88; PULSE 79; RESP 18; TEMP 36.5; O2SAT 98
[2021-08-15] MEDS: Acetaminophen 325 MG Tablet 650 MG PO ×2 (01:23→10:32)
[2021-08-15] MEDS: Lactated Ringers 1,000 ML 80 ML IV (01:28)
--- NOTE | 2021-08-15 07:09 | PN_ITS ---
Subjective Subjective This 41-year-old male was seen bedside postoperative day #1 right ankle fracture open reduction internal fixation. He denies fever, chill, nausea, vomiting, calf pain, shortness of breath, chest pain, urinary retention or constipation. He rates his pain as a 2 out of 10 and can now move his toes. His is bed side. Objective Data Objective Data Vital Signs: Vital Signs Temp Pulse Resp BP Pulse Ox 97.7 F L 79 18 131/88 H 98 08/15/21 01:17 08/15/21 01:17 08/15/21 01:17 08/15/21 01:17 08/15/21 01:17 Oxygen Flow Rate (L/min) [4] 2 Oxygen Flow Rate (L/min) [3] 2 Oxygen Flow Rate (L/min) [2] 2 Oxygen Flow Rate (L/min) [1 ( 2 Initial Baseline)] Oxygen Flow Rate (L/min) 2 Oxygen Delivery Method [4] Nasal Cannula Oxygen Delivery Method [3] Nasal Cannula Oxygen Delivery Method [2] Nasal Cannula Oxygen Delivery Method [1 ( Nasal Cannula Initial Baseline)] Oxygen Delivery Method Room Air Weight: 74 kg Body Mass Index (BMI) 26.2 Intake & Output: Intake and Output for Last 24 Hours 08/13/21 08/14/21 08/15/21 23:59 23:59 23:59 Intake Total 2610 / 2610 Output Total 1875 / 2825 950 / 950 Balance 735 / -215 -950 / -950 Lab / Micro Data Result Diagrams: 08/13/21 20:49 08/13/21 20:49 Micro: Microbiology 08/14/21 Unknown Nasal Secretion SARS-CoV-2 Antigen (Rapid) - Final Radiography Diagnostic Testing: Radiology Impression Ankle X-Ray 08/14/21 08:00 IMPRESSION: Fluoroscopy during open reduction internal fixation of fractures the medial malleolus and distal fibula. Electronically Signed: Ronnie Boyce MD at 10:24 EDT , Ankle X-Ray 08/14/21 10:32 IMPRESSION: Interval open reduction internal fixation of fractures the medial malleolus and distal fibula. Electronically Signed: Ronnie Boyce MD at 11:38 EDT , Physical Exam Const alert and oriented x3 General Appearance: cooperative HEENT normocephalic Extremity Extremity Narrative: No calf tenderness; negative olmos sign bilateral palpable dp pulse right Capillary fill time is less than 3 seconds to all 5 digits,right Rectus right lower extremity position is noted with posterior mold splint in place Skin Skin Narrative: No strikethrough or drainage adjacent to splint General Skin Exam: Negative for erythema Neuro Neuro Narrative: Epicritic sensation is intact to all digits and forefoot dermatomes Psych cooperative and affect normal Assessment & Plan Assessment/Plan (1) Closed trimalleolar fracture of ankle: (2) Right ankle pain: PLAN: I reviewed and discussed his case. He is postoperative day #1. Keep dressing and splint clean, dry, and intact. This to be changed when he follows up in clinic in 1 to 2 weeks. Postoperative x-rays demonstrate adequate reduction of the fracture fragments and ankle anatomy. The hardware is in the desired trajectory and position. There are no acute injuries. The ankle mortise is well aligned and there is restored appropriate tibia and fibula overlap. He will work with PT this morning and will remain nonweightbearing to the right lower extremity with use of crutches or walker. Prescriptions were provided for him to obtain these walking devices for when he returns home likely later today. We discussed his pain medication regimen. A prescription for home discharge was sent to [facility]; [place]. He was advised on safe and proper use. He is also advised to ice and elevate for additional pain management. He does not have significant risk factors for development of DVT. He will remain semiactive when he returns home and additional pharmaceutical DVT prophylaxis was not recommended for the home setting. He understands the signs and symptoms and will monitor. Answer all of his questions. I will follow-up on how he does with therapy and his ongoing pain control prior to discharge this afternoon. Please do not hesitate to call if you have any questions. Christine Menard DPM, [facility] [phone]
[2021-08-15 07:20] VITALS: BP 130/96; PULSE 72; RESP 18; TEMP 36.9; O2SAT 98
[2021-08-15] MEDS: oxyCODONE 5 MG Tablet 10 MG PO ×2 (07:38→11:50)
[2021-08-15 07:50] LABS: Vitamin D,25 Hydroxy 24.8 ng/mL
[2021-08-15] MEDS: Enoxaparin 40 MG/0.4 ML Syringe SC (10:33)
--- NOTE | 2021-08-15 11:12 | CASEMGMT ---
Addendum entered by Marisela Blas 08/15/21 11:33: Spoke with Susan who confirms FWW is not included in the package plan. Script sent to [employer] at this time to be delivered prior to dc. Original Note: MIK TOSCANO Assessment: Face to Face with pt for initial transition planning/care coordination assessment. MIK TOSCANO introduced self and role at [facility], pt voices understanding and consents to assessment. Pt is A/O x4 and answers all questions appropriately at this time. Pt sitting up in chair with at bedside. Care providers, pharmacy, and demographics verified/updated. Admitting Dx: R ankle fx PCP:John Specialists:Pt denies. Preferred Pharmacy: [facility] Retail Insurance: [employer] Prescription Benefit: no LW/HPOA: Pt denies having a LW/DPOA and denies need for info regarding AD. LNOK: Verónica Tobin, Living Arrangements: Pt lives with and 5 children in a two story house with 2 steps to enter without a rail. Pt reports he was I in ADL's prior to hospitalization and denies concerns at home. Transportation: Pt hires drivers for transportation. DME/HHC/SNF: Pt denies having any DME in the home. Pt does want a FWW for home and will take the script for crutches in case he should need it later. Pt prefers to use [employer]. He states he was told that a FWW or crutches comes with the [facility] Package Plan, left message with [facility] liasion to verify. Pt denies hx of HHC or SNF stays. Pt states no concerns with going home at time of dc. Pt states no further concerns/needs. CM to follow. Advised pt to ask CM if any further question/concerns/needs arise, voices understanding. Pt Goal: Home Plan: Home
--- NOTE | 2021-08-15 11:35 | PCM.DC ---
Discharge Instructions Diet Discharge Diet: No restrictions and - (Take pain medication as prescribed in a safe manner only if needed for pain control. Take Vitamin D supplement weekly as prescribed.) Activity Discharge Activity: May Not Drive and May Shower (only with shower bag use) Ice area for (Minutes): 15 (apply behind the knee) Dressing / Incision Call your doctor if your incision/area has: Continuous Slow Oozing, Sudden Increased Bleeding, Increased Pain/ Swelling, Increased Redness, Foul Smelling Discharge and Swelling at the incision site Call your doctor if you observe: Fever of 101 or Higher, Numbness or Tingling, Dizziness, Chest pain, Calf discomfort and Uncontrolled pain Remove Dressing in: do not remove dressing Cleanse incision/area with: Keep Dressing Clean & Dry Follow Up Care Please Follow Up With: Christine Menard DPM When: 1-2 weeks at [facility] Test Results: Test results from this visit will be discussed in further detail at your follow-up appointment, if applicable. Discharge Plan Admission Admit Date/Time: 08/13/21 19:57 Primary Reason for Your Visit: surgical repair of right ankle fracture Attending Provider: Jatinder Stanford Primary Care Provider: Tim Lopez Consulting Providers: Jose Guadalupe Sarah Instructions Additional Instructions / Restrictions: Maintain a nonweightbearing status to the right lower extremity with the use of an assistive device. Keep surgical dressing and splint clean, dry, and intact. Elevate right lower extremity. Ice for pain management if needed by placing the ice behind the knee for no more than 15 minutes each hour. Discharge Orders/Prescriptions Prescriptions: New oxycodone-acetaminophen 7.5-300 mg tablet 1 tab PO Q8H PRN (Reason: pain) 7 Days Qty: 21 RF: 0 Referrals / Follow Up: Christine Menard DPM [STAFF PHYSICIAN] - In 1 Week Tim Lopez MD [Primary Care Provider] - Disposition Disposition (needs filled in before D/C Order can be placed): Home, Self Care
--- NOTE | 2021-08-15 12:10 | PCM.PN.HOSP ---
Subjective Subjective Feeling well. Pain in ankle tolerable. Objective Data Objective Data Vital Signs: Vital Signs Temp Pulse Resp BP Pulse Ox 36.9 C 72 18 130/96 H 98 08/15/21 07:20 08/15/21 07:20 08/15/21 07:20 08/15/21 07:20 08/15/21 07:20 Oxygen Flow Rate (L/min) [4] 2 Oxygen Flow Rate (L/min) [3] 2 Oxygen Flow Rate (L/min) [2] 2 Oxygen Flow Rate (L/min) [1 ( 2 Initial Baseline)] Oxygen Flow Rate (L/min) 2 Oxygen Delivery Method [4] Nasal Cannula Oxygen Delivery Method [3] Nasal Cannula Oxygen Delivery Method [2] Nasal Cannula Oxygen Delivery Method [1 ( Nasal Cannula Initial Baseline)] Oxygen Delivery Method Room Air Weight: 74 kg Body Mass Index (BMI) 26.2 Intake & Output: Intake and Output for Last 24 Hours 08/13/21 08/14/21 08/15/21 23:59 23:59 23:59 Intake Total 2610 / 2610 824 / 824 Output Total 1875 / 2825 1750 / 1750 Balance 735 / -215 -926 / -926 Lab / Micro Data Result Diagrams: 08/13/21 20:49 08/13/21 20:49 Labs: Laboratory Results - last 24 hr 08/13/21 20:49: Vitamin D 25-Hydroxy 24.8 Micro: Microbiology 08/14/21 Unknown Nasal Secretion SARS-CoV-2 Antigen (Rapid) - Final Physical Exam Const alert and no apparent distress Resp normal respiratory effort, no retractions, no use of accessory muscles and clear to auscultation bilaterally Cardio regular rate, regular rhythm, S1 normal heart sound and S2 normal heart sound GI normal to inspection, nondistended, normoactive bowel sounds, soft to palpation, non-tender and non-distended Extremity normal to inspection and full ROM Neuro Sensorium / Orientation: awake Assessment & Plan Assessment/Plan (1) Closed trimalleolar fracture of ankle: QUALIFIERS: Encounter type: sequela Laterality: right Qualified Code(s): S82.851S - Displaced trimalleolar fracture of right lower leg, sequela PLAN: 1. Closed trimalleolar fracture. Status post ORIF on the Pain adequately controlled. Patient be nonweightbearing. 2. Elevated blood pressure Resolved No additional treatment. Medically stable for discharge. Charges/Coding Visit Charges Inpatient E&M: 51209 Subs Hosp L2
[2021-08-15 12:15] VITALS: BP 133/92; PULSE 88; RESP 16; TEMP 36.9; O2SAT 98
--- NOTE | 2021-08-15 14:51 | DS.PCM_ITS ---
Providers Date of Admission: 08/13/21 Primary Care Physician: Dr. Tim Lopez MD Consultations 08/13/21 20:58 Consult: Hospitalist Routine Consulting Provider: Jose Guadalupe Sarah Reason for Consult: preop screening for ankle ORIF EMERGENT Consult: No MD Notified: Yes Date Notified: 08/13/21 Time Notified: 20:55 Method of Notification: Verbal Reason For Visit: RIGHT ANKLE FRACTURE Diagnosis Discharge Diagnosis (1) Closed trimalleolar fracture of ankle: Status: Acute Code(s): S82.853A - Displaced trimalleolar fracture of unspecified lower leg, initial encounter for closed fracture Qualifiers: Encounter type: sequela Laterality: right Qualified Code(s): S82.851S - Displaced trimalleolar fracture of right lower leg, sequela Plan: He was admitted status post baseball injury for surgical repair of right ankle fracture which was repaired on 08-14-2021. He stated additional night for pain control and also work with physical therapy. He did well and was discharged home. Medications at Discharge Home Medications ergocalciferol (vitamin D2) [Vitamin D2] 1,250 mcg PO QWEEK #12 cap 08/15/21 oxycodone-acetaminophen 1 tab PO Q8H PRN 7 Days #21 tab 08/15/21 Hospital Course Operations - (Right ankle fracture open reduction internal fixation) Summary of Care Provided Minutes Spent on Discharge: 20 Hospital Course: Admitted and ankle fracture was reduced and temporarily splinted, surgical open reduction internal fixation, physical therapy assessment, discharge. Physical Exam Const alert and oriented x3 General Appearance: cooperative HEENT normocephalic Resp normal respiratory effort and clear to auscultation bilaterally Auscultation: Negative for wheezes Cardio regular rate and regular rhythm Extremity Extremity Narrative: No calf tenderness; negative olmos sign bilateral palpable dp pulse right Capillary fill time is less than 3 seconds to all 5 digits,right Rectus right lower extremity position is noted with posterior mold splint in place Skin Skin Narrative: No strikethrough or drainage adjacent to splint General Skin Exam: Negative for erythema Neuro Neuro Narrative: Epicritic sensation is intact to all digits and forefoot d ermatomes Psych cooperative and affect normal Weight / BMI Weight Weight: 74 kg Body Mass Index (BMI) 26.2 ABG / Lab / Microbiology Data Result Diagrams: 08/13/21 20:49 08/13/21 20:49 Laboratory: Laboratory Results - last 24 hr 08/13/21 20:49: Vitamin D 25-Hydroxy 24.8 Microbiology: Microbiology 08/14/21 Unknown Nasal Secretion SARS-CoV-2 Antigen (Rapid) - Final D/C Instructions Discharge Diet: No restrictions and - (Take pain medication as prescribed in a safe manner only if needed for pain control. Take Vitamin D supplement weekly as prescribed.) Ice area for (Minutes): 15 (apply behind the knee) Call your doctor if your incision/area has: Continuous Slow Oozing, Sudden Increased Bleeding, Increased Pain/ Swelling, Increased Redness, Foul Smelling Discharge and Swelling at the incision site Call your doctor if you observe: Fever of 101 or Higher, Numbness or Tingling, Dizziness, Chest pain, Calf discomfort and Uncontrolled pain Cleanse incision/area with: Keep Dressing Clean & Dry Please Follow Up With: Christine Menard DPM When: [facility] Meaningful Use Info Meaningful Use Diagnoses (Choose all that apply): None applicable Discharge Plan Admission Admit Date/Time: 08/13/21 19:57 Primary Reason for Your Visit: surgical repair of right ankle fracture Attending Provider: Jatinder Stanford Primary Care Provider: Tim Lopez Consulting Providers: Jose Guadalupe Sarah Instructions Additional Instructions / Restrictions: Maintain a nonweightbearing status to the right lower extremity with the use of an assistive device. Keep surgical dressing and splint clean, dry, and intact. Elevate right lower extremity. Ice for pain management if needed by placing the ice behind the knee for no more than 15 minutes each hour. Discharge Orders/Prescriptions Prescriptions: New oxycodone-acetaminophen 7.5-300 mg tablet 1 tab PO Q8H PRN (Reason: pain) 7 Days Qty: 21 RF: 0 ergocalciferol (vitamin D2) [Vitamin D2] 1,250 mcg (50,000 unit) capsule 1,250 mcg PO QWEEK Qty: 12 RF: 0 Referrals / Follow Up: Christine Menard DPM [STAFF PHYSICIAN] - 08/22/21 8:00 am Tim Lopez MD [Primary Care Provider] - Disposition Disposition (needs filled in before D/C Order can be placed): Home, Self Care
== END 2021-08-15 13:49 | disposition home or self-care (01) | DRG 494 ==
LOC: ED 19:59 → MS3 20:12
PROVIDERS: Admitting Provider Podiatrist; Emergency Provider Emergency Medicine; PCP Family Medicine
PROC: 0QSG04Z Reposition Right Tibia with Internal Fixation Device, Open Approach (ICD-10-PCS; principal; 2021-08-14 08:00)
DX: S82.851A Displaced trimalleolar fracture of right lower leg, initial encounter for closed fracture (principal); W22.09XA Striking against other stationary object, initial encounter; Y93.64 Activity, baseball; Y99.8 Other external cause status
CPT/HCPCS: 36415; 73600; 73610; 73700; 76000; 80053; 82306; 85025; 87426; 97162; 97166; 99251; 99285; C1713; J7120; A4216; G0463; J2405

== ENCOUNTER 2022-01-11 09:00 | Outpatient (RCR) | payer SELFPAY, OTHER ==
--- NOTE | 2021-11-02 10:37 | HP.PTEVAL_ITS ---
Patient's Visit Information RADHA SLAUGHTER is a 41 year old M referred to Physical Therapy by CATHLEEN DanielsM with a diagnosis of R ankle Fx. Date of Evaluation: 11/02/21 Physical Therapist: Sharan Rodriguez, PT, ATC - Visit Plan Frequency: 2x /Week Duration: 2-4 Months Plan: R ankle PROM/mobs, stretching and strengthening, balance and proprio, bike, and HEP - Subjective DOS: 08/14/21. Pt reports he was playing softball when he slid into second base and fractured his R ankle. Pt reports this resulted in a trimallelor fracture that required surgery. Pt reports he was in a gutter splint for 6 weeks, and has been in a CAM boot ever since. Pt reports he has been trying to ambulate with PWBing and 2 crutches as he has been told he can WBAT. Pt denies any prior Hx of R ankle trauma. No tingling or numbness in R LE. Pt reports he has sleep difficulty since being off of his pain medications. 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 Pt reports he has stairs at home that he has to negotiate, but notes he has to go one step at at time. Pt would like to be able to play softball again one day in the future. Pt reports his most important goal is to be able to get back to walking without a limp. 0/10 pain at rest, 4/10 at worst (ambulating on R LE) - Pain R ankle Pain Intensity (Out of 10): 0 Pain Intensity Range: 4 - Objective Neuro: B LE sensation is WNL to light touch. B patellar reflex 2+/3. Girth: R ankle 57 cm, L ankle 52 cm. ROM: R ankle DF= -2, PF= 50; L ankle DF= 7, PF= 55. MMT: L ankle 5/5 throughout. R ankle 3/5. Gait: Pt is able to ambulate greater than 200' with 2 crutches - Balance/Special Test Scores Lower Extremity Functional Score: 26 - Goals Goal 1:: Decrease R ankle pain x 50% to aid with sleep Goal Time Frame: 6-8 Weeks Goal 2:: Increase R ankle DF ROM x 15 degrees to aid with restoring a more normalized gait gray Goal Time Frame: 6-8 Weeks Goal 3:: Increase R ankle strength x 1-2 grade to aid with return to work without limitation Goal Time Frame: 6-8 Weeks Goal 4:: Pt will ambulate greater than 340 feet with LRD to aid with community ambulation Goal Time Frame: 6-8 Weeks Goal 5:: I with HEP Goal Time Frame: 6-8 Weeks - Rehabilitation Potential Physical Therapy Diagnosis: Pt has R ankle pain, weakness, and limited ROM secondary to R ankle Fx Rehabilitation Potential: Good - Anticipated Interventions Patient/Client Instruction: Educate patient on: Condition, Plan of Care For the Purpose of:: To improve self management Therapeutic Exercise to Include: Strength training, Endurance training, Balance training, Flexibilty training, Gait and locomotor training, Passive ROM, Active ROM For the Purpose of:: To decrease pain, To increase ROM, To improve muscle performance and motor function Cryotherapy (ice pack, ice massage): Yes For the Purpose of:: To decrease pain Thank you for the opportunity to evaluate your patient. For Medicare and Medicare HMO plans, please review the plan of care and approve it. It will need to be FAXED BACK to us at [phone] for Medicare purposes. For Medicare only, by signing this I certify the plan of care. Please let me know if there are questions or concerns regarding this plan of care. Physician Signature: Date:
--- NOTE | 2021-12-14 10:13 | HP.PTREVAL ---
Dr. Christine Menard, DPM, It has been my pleasure to treat RADHA SLAUGHTER over the last 12 visits for R ankle Fx 08/14/21. Please see the progress note below for an update on the physical therapy plan of care! Subjective: I am getting better, I think I still need more Objective/Function: R anikle pain 05/02. DF ROM 5 degrees. R ankle DF/PF MMT /, inv/ever= 4-/5. Pt can ambulate greater than 340 feet without limitation. Pt is progressing well but would benefit from further strengthening and ROM Plan Plan: Cont to progress R LE strengthening Balance/Gait/Functional tests - Balance/Special Test Scores Lower Extremity Functional Score: 26 Goals Goal 1:: Decrease R ankle pain x 50% to aid with sleep Goal Time Frame: 6-8 Weeks Goal Progress: Progressing Goal 2:: Increase R ankle DF ROM x 15 degrees to aid with restoring a more normalized gait imantterholli Goal Time Frame: 6-8 Weeks Goal Progress: Progressing Goal 3:: Increase R ankle strength x 1-2 grade to aid with return to work without limitation Goal Time Frame: 6-8 Weeks Goal Progress: Progressing Goal 4:: Pt will ambulate greater than 340 feet with LRD to aid with community ambulation Goal Time Frame: 6-8 Weeks Goal Progress: Goal Met Goal 5:: I with HEP Goal Time Frame: 6-8 Weeks Goal Progress: Progressing Anticipated Interventions Patient/Client Instruction: Educate patient on: Condition, Plan of Care For the Purpose of:: To improve self management Therapeutic Exercise to Include: Strength training, Endurance training, Balance training, Flexibilty training, Gait and locomotor training, Passive ROM, Active ROM For the Purpose of:: To decrease pain, To increase ROM, To improve muscle performance and motor function Cryotherapy (ice pack, ice massage): Yes For the Purpose of:: To decrease pain Please do not hesitate to contact me at [phone] by phone or if you have questions or concerns regarding this new plan of care! Sincerely, Sharan Rodriguez, PT, ATC
--- NOTE | 2022-01-16 10:01 | HP.PTDCSUM ---
It has been my pleasure to treat RADHA SLAUGHTER referred by Dr. Christine Menard, ERIK, with the diagnosis of R ankle Fx 08/14/21 for a total of 21 visit(s). Discharge Date: Please see the following information for a summary of their discharge status. Subjective: No pain this date. Pt is ready for discharge today R ankle Pain Intensity (Out of 10): 0 LBP Pain Intensity (Out of 10): 9 % Improvement: 94 Objective/Function: R ankle pain 0/10. R ankle DF ROM: 8 degrees. R ankle MMT: 5/5 throughout. Pt is I with HEP. Rx goals achieved Goal 1:: Decrease R ankle pain x 50% to aid with sleep Goal Progress: Goal Met Goal 2:: Increase R ankle DF ROM x 15 degrees to aid with restoring a more normalized gait gray Goal Progress: Goal Met Goal 3:: Increase R ankle strength x 1-2 grade to aid with return to work without limitation Goal Progress: Goal Met Goal 4:: Pt will ambulate greater than 340 feet with LRD to aid with community ambulation Goal Progress: Goal Met Goal 5:: I with HEP Goal Progress: Goal Met Plan: Discharge to HEP If there are questions or concerns regarding this patient's physical therapy, please feel free to call me at [phone]. Thank you for the referral of this patient. Sincerely, Sharan Rodriguez, PT, ATC Balance/Gait/Functional tests - Balance/Special Test Scores Lower Extremity Functional Score: 74
== END 2022-01-11 19:00 | disposition home or self-care (01) ==
LOC: PT 09:00
PROVIDERS: PCP Family Medicine; Referring Provider Podiatrist; Visit Provider Podiatrist
DX: S82.851D Displaced trimalleolar fracture of right lower leg, subsequent encounter for closed fracture with routine healing (principal); X58.XXXD Exposure to other specified factors, subsequent encounter
CPT/HCPCS: 97014; 97110; 97140; 97161; 97164; G0283

== ENCOUNTER 2022-04-26 22:30 | Emergency (ER) | payer OTHER, SELFPAY ==
[2022-04-26 22:31] VITALS: BP 156/107; PULSE 101; RESP 20; TEMP 36.7; O2SAT 98; BMI 25.2
--- NOTE | 2022-04-26 23:00 | EKG12_ITS ---
Test Reason : DYSRHYTHMIA Blood Pressure : / mmHG Vent. Rate : 104 BPM Atrial Rate : 104 BPM P-R Int : 202 ms QRS Dur : 086 ms QT Int : 336 ms P-R-T Axes : 029 -03 008 degrees QTc Int : 441 ms Sinus tachycardia Otherwise normal ECG Confirmed by CAROLINA DOLL, MICHELA ([id number]), video editor MODESTO GONZALEZ ([id number]) on 04/28/2022 6:37:26 AM Referred By: DOUGLAS Confirmed By:PAMELLA FIGUEROA MD
--- NOTE | 2022-04-26 23:00 | CT_ITS ---
INDICATION: syncope EXAMINATION: CT Head or Brain W/O Contrast Injection TECHNIQUE: Multiple axial images were obtained of the head without intravenous contrast. A radiation dose optimization technique was used for this scan. IV Contrast dosage and agent: None. COMPARISON: None FINDINGS: BRAIN PARENCHYMA: No intra- or extra-axial hemorrhage. No evidence of acute major territorial infarct. No intracranial mass or mass effect. There is preservation of the kc/white matter interface. Posterior fossa structures are unremarkable. CSF SPACES: Appropriate for age. No hydrocephalus. Basal cisterns are patent. CALVARIUM, SKULL BASE, PARANASAL SINUSES AND MASTOID AIR CELLS: Calvarium is intact. Mild sinus mucosal thickening. Mastoid air cells are well-pneumatized. ORBITS: No acute findings. CT/Brain/Head without Contrast IMPRESSION: No evidence of acute intracranial abnormality. Electronically Signed: Nitish Vital MD at 23:45 EST ,
--- NOTE | 2022-04-26 23:08 | EDS_ITS ---
HPI History of Present Illness Chief Complaint: Syncope Narrative Narrative: Patient is a 41-year-old male with no reported significant past medical history. He states he was lying down in bed this evening and remembers falling asleep. states she was in the bathroom and she heard him making weird noises. She states she came out and found him unresponsive and moving abnormally in the bed. She states that he was not waking up to her voice so she called 911. Patient states he awoke and EMS was in his house hooking him up to their equipment. He states there was no loss of bowel or bladder control and he states that when he awoke he knew who he was and where he was at. He denies any history of seizure disorder and he states that there is been no new medication or illicit drug use but with this event occurring today which is not happened in the past he was brought in for evaluation [facility] Medical History High cholesterol Home Medications ergocalciferol (vitamin D2) 1,250 mcg (50,000 unit) capsule (Vitamin D2) 1,250 mcg PO QWEEK #12 caps 08/15/21 [Rx Last Taken Unknown] Allergy/AdvReac Type Severity Reaction Status Date / Time No Known Allergies Allergy Verified 04/26/22 22:36 Surgical History H/O hernia repair Social History Smoking Status: Never smoker ROS ROS ED Constitutional Constitutional ED: Denies chills or fever(s) Eyes Eyes: Denies change in vision ENT ENT ED: Denies sore throat Cardiovascular Cardiovascular: Denies chest pain Respiratory/Chest Respiratory/Chest: Denies cough or dyspnea Gastrointestinal Gastrointestinal: Denies abdominal pain, diarrhea, nausea or vomiting Genitourinary Genitourinary ED: Denies dysuria Musculoskeletal Musculoskeletal: Denies myalgias or neck pain Integumentary Denies rash Neurologic Neurologic: Denies headache(s) or paresthesias Hematologic/Lymphatic Hematologic/Lymphatic: Denies easy bleeding or easy bruising EXAM Physical Exam Const Vital Signs: 04/26/22 22:31 04/26/22 22:37 04/27/22 00:35 Temperature 98.1 F 100.5 F H Temperature Source Temporal Oral Pulse Rate 101 H 126 H Respiratory Rate 20 H 38 H Respiratory Effort Normal Respiratory Pattern Normal Blood Pressure 156/107 H Blood Pressure Mean 123 Pulse Ox 98 94 Oxygen Delivery Method Room Air Room Air 04/27/22 02:26 Temperature 98.6 F Temperature Source Oral Pulse Rate 84 Respiratory Rate 15 Respiratory Effort Respiratory Pattern Blood Pressure 154/94 H Blood Pressure Mean 114 Pulse Ox 96 Oxygen Delivery Method Room Air Positive well nourished and well developed General Appearance ED: well developed and pallor HEENT Reports moist mucous membranes HEENT Narrative: Patient has a faint abrasion to the left lateral tongue concerning for recent seizure activity Eyes PERRL and EOMs intact bilaterally Neck supple Neck Narrative: No carotid bruit noted Chest Wall palpation of chest normal Resp normal respiratory effort and clear to auscultation bilaterally Cardio regular rhythm Rate: tachycardic and other Other Details: Radial pulses are plus 2 out of 4 bilaterally are equal and symmetric GI normal to inspection, nondistended, normoactive bowel sounds, non-tender and non-distended GI Narrative: No voluntary guarding or rigidity no pulsatile mass Auscultation: normoactive bowel sounds Palpation: soft Extremity normal to inspection Neuro oriented x3, CN's II-XII intact bilaterally and no sensory deficits noted Neuro Narrative: Cranial nerves II through XII are grossly intact there are no focal neurologic deficits. No pronator drift no dysmetria no truncal ataxia. NIH stroke scale score of 0 Sensorium / Orientation: alert Psych mental status grossly normal Skin no rashes or lesions noted General Skin Exam: pallor MDM MDM MDM Narrative Medical decision making narrative: Patient arrived to the ER awake and alert with normal neurologic exam and stroke scale score of 0. With reporting that he was laying in bed and sleeping and then she heard abnormal sounds and shaking this is most consistent with seizure activity. Secondary to this a head CT and basic lab work were ordered. Head CT revealed no acute findings and labs showed mild derangement to his potassium at 3.1 but otherwise the only clinically significant finding was his lactic acid of 4.9 which would correlate with a seizure event. While the patient was being hydrated he did develop a low-grade temperature of 100.5 and some tachypnea. Secondary to this development of fever and tachypnea elected to perform further lab evaluation. Labs showed negative COVID and flu but D-dimer was slightly elevated so CT of the chest was added which revealed no acute PE or lung pathology. After patient received 2 L of IV fluids his vital signs improved and he had no further seizure activity. Therefore this time with negative work-up and only 1 seizure-like event I do not feel there is need for admission and he can follow-up with neurology on an outpatient basis Lab Data Attestation: I reviewed the patient's lab results. Labs: Laboratory Results - last 24 hr 04/26/22 04/26/22 04/26/22 22:40 22:40 22:40 WBC 9.4 RBC 4.95 Hgb 15.8 Hct 45.6 MCV 92.1 MCH 31.9 MCHC 34.6 RDW Std Deviation 42.9 RDW Coeff of John 12.7 Plt Count 366 MPV 9.8 Immature Gran % (Auto) 1.900 H Neut % (Auto) 50.2 Lymph % (Auto) 37.5 [place] % (Auto) 7.0 Eos % (Auto) 2.9 Baso % (Auto) 0.5 Absolute Neuts (auto) 4.7 Absolute Lymphs (auto) 3.54 Nucleated RBC % 0 D-Dimer Quant (PE/DVT) Sodium 142 Potassium 3.1 L Chloride 108 H Carbon Dioxide 27.0 Anion Gap 7 BUN 18 Creatinine 1.01 Estim Creat Clear Calc 85.98 Est GFR (MDRD) Af Amer 104 Est GFR (MDRD) Non-Af 86 BUN/Creatinine Ratio 17.8 Glucose 167 H Lactic Acid 4.9 H* Calcium 9.2 Magnesium 2.4 Troponin I High Sens < 3 L Urine Color Urine Clarity Urine pH Ur Specific [place] Urine Protein Urine Glucose (UA) Urine Ketones Urine Occult Blood Urine Nitrite Urine Bilirubin Urine Urobilinogen Ur Leukocyte Esterase Urine RBC Urine WBC Ur Squamous Epith Cells Urine Bacteria Urine Mucus 04/26/22 04/27/22 22:40 02:00 WBC RBC Hgb Hct MCV MCH MCHC RDW Std Deviation RDW Coeff of John Plt Count MPV Immature Gran % (Auto) Neut % (Auto) Lymph % (Auto) [place] % (Auto) Eos % (Auto) Baso % (Auto) Absolute Neuts (auto) Absolute Lymphs (auto) Nucleated RBC % D-Dimer Quant (PE/DVT) 0.78 H* Sodium Potassium Chloride Carbon Dioxide Anion Gap BUN Creatinine Estim Creat Clear Calc Est GFR (MDRD) Af Amer Est GFR (MDRD) Non-Af BUN/Creatinine Ratio Glucose Lactic Acid Calcium Magnesium Troponin I High Sens Urine Color Yellow Urine Clarity Clear Urine pH 7.0 Ur Specific [place] 1.005 Urine Protein Negative Urine Glucose (UA) Normal Urine Ketones Negative Urine Occult Blood Negative Urine Nitrite Negative Urine Bilirubin Negative Urine Urobilinogen Normal Ur Leukocyte Esterase Negative Urine RBC 0 SEEN Urine WBC 0 SEEN Ur Squamous Epith Cells 0 SEEN Urine Bacteria 0 SEEN Urine Mucus 0 SEEN Radiography Diagnostic Testing: Clinical Impression(s) from Imaging Studies Brain CT 04/26/22 23:00 IMPRESSION: No evidence of acute intracranial abnormality. Electronically Signed: Nitish Vital MD at 23:45 EST , Chest CTA 04/27/22 01:11 IMPRESSION: Normal CTA chest examination, without a demonstrated pulmonary embolism or arterial dissection. Electronically Signed: Felicia Go MD at 1:56 EST , Discharge Plan Triage Chief Complaint: Syncope ED Provider: Kriit Olivo Dx/Rx/DC Orders Clinical Impression: Seizure-like activity, Hypokalemia Instructions: ED Seizure New Onset Unknown ... Prescriptions: No Action ergocalciferol (vitamin D2) [Vitamin D2] 1,250 mcg (50,000 unit) capsule 1,250 mcg PO QWEEK Qty: 12 0RF Primary Care Provider: Tim Lopez Referrals: Talon Kim MD [Non-Staff -Ordering Privileges] - Tim Lopez MD [Primary Care Provider] - Activity Restrictions/Additional Instructions: Your work-up today and history is most consistent with a single seizure events. Keep yourself well-hydrated and follow-up with your family doctor and neurology for repeat evaluation. If you have any further concerns please return to the ER for repeat evaluation Disposition Disposition: Home, Self Care
[2022-04-26 23:22] LABS: Absolute Lymphocyte Count 3.54 X10^3/uL (0.83-4.51); Absolute Neutrophil Count 4.7 X10^3/uL (2.0-7.7); Basophil# 0.05 X10^3/uL; Basophil% 0.5 % (0-1); Eosinophil# 0.27 X10^3/uL; Eosinophils% 2.9 % (0-5); Hematocrit 45.6 % (40-54); Hemoglobin 15.8 g/dL (13.0-16.5); Lymphocyte # 3.54 X10^3/ul (0.83-4.51); Lymphocyte % 37.5 % (19-41); Mean Corp Hgb Conc 34.6 g/dL (32-36); Mean Corpuscular Hgb 31.9 pg (27.0-32.0); Mean Corpuscular Volume 92.1 fL (80-94); Mean Platelet Vol. 9.8 fl (6.2-12.0); Monocyte# 0.66 X10^3/uL; NRBC Flagged by Analyzer 0 % (0-5); Neutrophil # 4.73 X10^3/uL (2.7-7.7); Neutrophil % 50.2 % (47-70); Platelet Count 366 K/mm3 (150-450); RBC Distribution Width CV 12.7 % (11.6-14.6); RBC Distribution Width SD 42.9 fl (35.1-43.9); Red Blood Count 4.95 M/mm3 (4.6-6.2); White Blood Count 9.4 K/mm3 (4.4-11.0)
[2022-04-26 23:38] LABS: Anion Gap 7 (5-15); BUN 18 mg/dL (7-18); BUN/Creat Ratio 17.8 RATIO (10-20); Calcium,Total 9.2 mg/dL (8.5-10.1); Chloride 108 mmol/L (98-107); Creatinine, Serum 1.01 mg/dL (0.70-1.30); EST Glomerular Filtration Rate 86 mL/min (>60); Est Glom Filt Rate - Afr Amer 104 mL/min (>60); Estimated Creatinine Clearance 85.98 ml/min; Glucose 167 mg/dL (74-106); Magnesium 2.4 mg/dL (1.6-2.6); Potassium 3.1 mmol/L (3.5-5.1); Sodium Level 142 mmol/L (136-145); Troponin-I HS < 3 pg/mL (3.0-78.0)
[2022-04-27 00:02] LABS: Lactic Acid 4.9 mmol/L (0.4-1.9)
[2022-04-27] MEDS: 0.9% Normal Saline 1,000 ML 999 ML IV ×2 (00:10→01:37)
[2022-04-27 00:35] VITALS: PULSE 126; RESP 38; TEMP 38.1; O2SAT 94
[2022-04-27 01:09] LABS: D-Dimer Quantitative (DVT/PE) 0.78 FEU/ug/m (0.27-0.49)
--- NOTE | 2022-04-27 01:11 | CT_ITS ---
STUDY: CTA CHEST REASON FOR EXAM: Male, 41 years old. elevated d-dimer RADIATION DOSAGE (If Supplied By Facility): CTDIvol = ( 11.38 ) mGy, DLP = ( 408.98 ) mGycm TECHNIQUE: The examination was performed with the intravenous administration of IV 75mL Isovue-370. Post-processing of the angiographic images was performed, with multiplanar reformation and 3D reconstruction. Individualized dose optimization techniques were used for this CT. COMPARISON: None. FINDINGS: Normal enhancement of the main pulmonary artery and right and left pulmonary arteries. Normal enhancement of the bilateral peripheral pulmonary arteries. There is no demonstrated pulmonary embolism. Normal thoracic aorta and visualized great vessels. There is no demonstrated aortic dissection. Normal heart and pericardium. Normal mediastinum. Normal hilar regions. Normal visualized trachea and bronchi. The lungs are well expanded. Normal pulmonary parenchyma. Normal pleura. Normal chest wall structures. Normal osseous structures. Normal visualized upper abdomen. CT/CTA Chest W/WO Contrast IMPRESSION: Normal CTA chest examination, without a demonstrated pulmonary embolism or arterial dissection. Electronically Signed: Felicia Go MD at 1:56 EST ,
[2022-04-27] MEDS: Acetaminophen 500 MG Tablet 1000 MG PO (01:37)
[2022-04-27 02:04] LABS: Bacteria 0 SEEN /hpf (None Seen); Mucous, Urine 0 SEEN /hpf (<or=2+); Red Blood Cells-Urine 0 SEEN /hpf (0-5); Squamous Epithelial Cells - UA 0 SEEN /hpf (0-5); White Blood Cells 0 SEEN /hpf (0-5)
[2022-04-27 02:13] LABS: Color, Urine Yellow (Yellow); Glucose, Dipstick Normal (Normal); Ketone-Dipstick Negative (Negative); Leukocyte Esterase-Dipstick Negative /ul (Negative); Nitrite-Dipstick Negative (Negative); Occult Blood-Urine Negative /ul (Negative); Protein-Dipstick Negative (Negative); Specific Gravity, Urine 1.005 (1.002-1.030); Urine Bilirubin Dipstick Negative (Negative); Urine Clarity Clear (Clear); Urine Urobilinogen Normal (Normal)
[2022-04-27 02:26] VITALS: BP 154/94; PULSE 84; RESP 15; TEMP 37; O2SAT 96
[2022-04-27 03:08] LABS: Reflex Lactate? Y
[2022-04-27 03:36] VITALS: BP 141/97; PULSE 84; RESP 14; O2SAT 96
== END 2022-04-27 04:54 | disposition home or self-care (01) ==
PROVIDERS: Emergency Provider Emergency Medicine; PCP Family Medicine; Visit Provider Emergency Medicine
DX: R56.9 Unspecified convulsions (principal); E87.6 Hypokalemia
CPT/HCPCS: 70450; 71275; 80048; 81001; 83605; 83735; 84484; 85025; 85379; 87428; 93005; 96360; 96361; 99285; J7030; Q9967

== ENCOUNTER 2024-07-12 00:36 | Emergency (ER) | payer OTHER, SELFPAY ==
[2024-07-12] VITALS (14 sets, daily range): BP systolic 126–168; BP diastolic 86–104; PULSE 73–97; RESP 14–18; TEMP 36.5–37.1; O2SAT 95–98; BMI 26.8
--- NOTE | 2024-07-12 01:03 | CT_ITS ---
PROCEDURE: BRAIN/HEAD WITHOUT CONTRAST 07/12/2024 REASON FOR EXAM: SEIZURE TECHNIQUE: Noncontrast head CT with coronal and sagittal reformatted images COMPARISON: 04/26/2022 FINDINGS: Mild off axis imaging. No intracranial hemorrhage, mass effect or CT evidence of acute infarct. The kc-white differentiation appears preserved. The ventricles are unchanged in size and remain midline. There is now mild mucoperiosteal thickening right maxillary sinus with small fluid level consistent with sinusitis. The other visualized paranasal sinuses, mastoids and orbits appear within limits. CT/Brain/Head without Contrast IMPRESSION: No CT evidence of acute intracranial abnormality. Right maxillary sinusitis as above. Reading Location: [id number]
--- NOTE | 2024-07-12 01:03 | EKG12_ITS ---
Test Reason : DYSRHYTHMIA Blood Pressure : */* mmHG Vent. Rate : 91 BPM Atrial Rate : 91 BPM P-R Int : 180 ms QRS Dur : 80 ms QT Int : 368 ms P-R-T Axes : 16 -4 12 degrees QTcB Int : 452 ms Normal sinus rhythm Minimal voltage criteria for LVH, may be normal variant ( R in aVL ) Borderline ECG Confirmed by AMIRA DOLL, OVI ([id number]), web content editor MODESTO GONZALEZ ([id number]) on 07/14/2024 7:30:49 AM Referred By: Confirmed By: OVI COLLIER MD
[2024-07-12] MEDS: 0.9% Normal Saline (1000mL) 1,000 ML 1000 ML IV (01:10)
--- NOTE | 2024-07-12 01:16 | EDS_ITS ---
HPI History of Present Illness Chief Complaint: Seizure Narrative Narrative: Chief complaint and HPI: Seizure. 44-year-old male with no stated past medical history other than a seizure 1 years ago not on medication presents for evaluation of seizure. Patient was lying down for bed when his noticed he was shaking. She states he had a tonic-clonic seizure that lasted around 5 to 7 minutes. Patient had a postictal phase but this resolved quickly. Had some urinary continence as well as bit his tongue. Patient states that he has recently got a new job and has been under stress but otherwise no complaints. He denies any fever, chills, lightheadedness, syncope, shortness of breath, chest pain, URI symptoms, abdominal pain, nausea, vomiting, dysuria. States he has been eating and drinking well. Denies any falls or trauma. Patient states he was evaluated by a neurologist a year ago Dr. Causey at [place]. His workup was unremarkable and therefore was not placed on medication. Currently he is endorsing some nausea. Triage note states lightheadedness but he declines this for me. Review of systems: See HPI Medications: As listed on the chart Allergies: As listed on the chart PFSH: Per chart Vital signs: As listed on the chart. Reviewed. Physical exam: Gen: A&O x3, NAD Head: Normocephalic, atraumatic Eyes: No sclera icterus, conjunctiva clear, PERRL, EOMI ENT: Moist mucous membranes, small bite morgan to the right lateral tongue, no facial asymmetry Neck: Trachea midline, No JVD CV: RRR, no murmurs, no peripheral edema Resp: Lungs CTA BL, no w/r/c GI: Abd soft, non-distended, non-tender, no r/r/g Musc: Full ROM, no deformity, strength +5/5 in all extremities Skin: Warm, dry, intact Neuro: Alert, oriented, grossly intact, sensation intact, no focal deficits Psych: Cooperative, appropriate mood and affect [facility] Medical History High cholesterol Home Medications ?Medication ?Instructions ?Recorded ?Last Taken ?Type NK 07/12/24 Unknown History Allergy/AdvReac Type Severity Reaction Status Date / Time No Known Allergies Allergy Verified 07/12/24 00:37 Surgical History Status post ORIF of fracture of ankle H/O hernia repair Social History Smoking Status: Never smoker EXAM Physical Exam Const Vital Signs: 07/12/24 00:38 07/12/24 00:56 07/12/24 01:00 Temperature 97.7 F L Temperature Source Oral Pulse Rate 96 93 89 Respiratory Rate 18 17 18 Blood Pressure 153/102 H 158/101 H Blood Pressure Mean 119 118 Pulse Ox 96 96 95 Oxygen Delivery Method Room Air 07/12/24 01:15 07/12/24 01:34 07/12/24 01:35 Temperature Temperature Source Pulse Rate 92 95 Respiratory Rate 18 16 Blood Pressure 168/104 H 151/99 H Blood Pressure Mean 120 115 Pulse Ox 96 96 Oxygen Delivery Method 07/12/24 01:37 07/12/24 01:45 07/12/24 02:00 Temperature Temperature Source Pulse Rate 90 84 97 Respiratory Rate 16 14 16 Blood Pressure 151/99 H 145/94 H 135/94 H Blood Pressure Mean 116 107 107 Pulse Ox 96 95 96 Oxygen Delivery Method Room Air Room Air Room Air 07/12/24 02:00 07/12/24 02:15 07/12/24 02:30 Temperature Temperature Source Pulse Rate 82 82 73 Respiratory Rate 15 15 16 Blood Pressure 126/86 H 139/97 H 135/94 H Blood Pressure Mean 100 111 105 Pulse Ox 95 96 95 Oxygen Delivery Method Room Air Room Air 07/12/24 03:00 07/12/24 04:00 Temperature Temperature Source Pulse Rate 94 83 Respiratory Rate 16 16 Blood Pressure 146/93 H 141/99 H Blood Pressure Mean 110 113 Pulse Ox 98 95 Oxygen Delivery Method Room Air Room Air MDM MDM MDM Narrative Medical decision making narrative: 44-year-old male with no stated past medical history other than a seizure 1 ye ars ago not on medication presents for evaluation of seizure. Differential diagnosis includes but is not limited to seizure/epilepsy, arrhythmia, electrolyte abnormality, intracranial abnormality, intoxication pneumonia, UTI. Not meningitis. NS bolus and Zofran ordered. Seizure workup ordered including CT head. Patient is hypertensive here in the emergency department. Low-dose hydralazine ordered with improvement in blood pressure. EKG and chest x-ray reviewed. CBC without leukocytosis or anemia. CMP with hypokalemia of 2.9. P.o. potassium ordered. No MARIE. No transaminitis. Troponin unremarkable. Magnesium 2.4. Lactic acid elevated at 2.6 which is consistent with seizure activity. UA negative for UTI. Urine drug screen negative. Ethanol level negative. CT brain without any acute intracranial abnormality. At this point in time, no clear etiology for patient's seizure. Patient's neurologist, Dr. Causey will be contacted. We are unable to get a hold of the patient's neurologist therefore [place] [facility] paged. We are unable to get a hold of [place] [facility] therefore [facility] neurology was consulted. I spoke with the neurologist on-call. He recommends starting Keppra 500 mg twice daily. No driving. Follow-up with neurology. Patient and were updated over the results and plan. They confirmed understanding. Will load patient with Keppra IV here in the emergency department. He will be given a prescription of Keppra 500 mg twice daily x 1 month until he can sees neurology. Follow-up with his neurologist Dr. Causey. Patient and are educated that patient is not allowed to drive the horse and buggy until cleared by neurologist. They confirmed understanding. Will give a couple days of potassium replacement. He will need his potassium rechecked. Follow-up with PCP. Patient stable to discharge home. EKG: Interpreted by me/EM physician: EKG shows normal sinus rhythm. No acute ischemic changes. Heart rate 91. Diagnostic: Interpreted by me/EM physician: Chest x-ray not pneumonia, effusion, cardiomegaly, pneumothorax Impression: 1. Seizure 2. Hypokalemia Lab Data Labs: Laboratory Results - last 24 hr 07/12/24 07/12/24 00:38 01:15 WBC 7.8 RBC 4.70 Hgb 14.7 Hct 42.5 MCV 90.4 MCH 31.3 MCHC 34.6 RDW Std Deviation 41.3 RDW Coeff of John 12.6 Plt Count 328 MPV 9.7 Immature Gran % (Auto) 0.400 Neut % (Auto) 61.7 Lymph % (Auto) 27.1 [place] % (Auto) 7.2 Eos % (Auto) 3.0 Baso % (Auto) 0.6 Absolute Neuts (auto) 4.8 Absolute Lymphs (auto) 2.11 Nucleated RBC % 0 Sodium 139 Potassium 2.9 L Chloride 102 Carbon Dioxide 21.7 Anion Gap 15 BUN 12 Creatinine 1.07 Estim Creat Clear Calc 78.67 Est GFR (MDRD) Non-Af 87 BUN/Creatinine Ratio 10.9 Glucose 161 H Lactic Acid 2.6 H* Calcium 8.8 Magnesium 2.4 H Total Bilirubin 0.48 AST 22 ALT 21 Alkaline Phosphatase 72 Troponin T High Sens < 6 Total Protein 7.0 Albumin 4.5 Globulin 2.5 Albumin/Globulin Ratio 1.8 Urine Color Yellow Urine Clarity Clear Urine pH 6.0 Ur Specific [place] 1.030 Urine Protein 30 H Urine Glucose (UA) Normal Urine Ketones 5 H Urine Occult Blood 10 H Urine Nitrite Negative Urine Bilirubin Negative Urine Urobilinogen Normal Ur Leukocyte Esterase Negative Urine RBC 0 SEEN Urine WBC 0 SEEN Ur Squamous Epith Cells 0 SEEN Urine Bacteria 0 SEEN Urine Mucus 0 SEEN Urine Opiates Screen NEGATIVE U Buprenorphine Qual NEGATIVE Ur Oxycodone Screen NEGATIVE Urine Methadone Screen NEGATIVE Urine Fentanyl Screen NEGATIVE Ur Barbiturates Screen NEGATIVE Ur Phencyclidine Scrn NEGATIVE Ur Amphetamines Screen NEGATIVE U Benzodiazepines Scrn NEGATIVE Urine Cocaine Screen NEGATIVE U Cannabinoids Screen NEGATIVE Ethyl Alcohol < 10.1 Radiography Diagnostic Testing: Clinical Impression(s) from Imaging Studies Brain CT 07/12/24 01:03 IMPRESSION: No CT evidence of acute intracranial abnormality. Right maxillary sinusitis as above. Reading Location: [facility] Chest X-Ray 07/12/24 01:30 IMPRESSION: No evidence of acute disease. Reading Location: [facility] Discharge Plan Triage Chief Complaint: Seizure ED Provider: Demond Wills Dx/Rx/DC Orders Prescriptions: No Action NK Primary Care Provider: Tim Lopez Referrals: Tim Lopez MD [Primary Care Provider] - Print Language: Nigerian
[2024-07-12 01:17] LABS: Absolute Lymphocyte Count 2.11 X10^3/uL (0.83-4.51); Absolute Neutrophil Count 4.8 X10^3/uL (2.0-7.7); Basophil# 0.05 X10^3/uL; Basophil% 0.6 % (0-1); Eosinophil# 0.23 X10^3/uL; Hematocrit 42.5 % (40-54); Hemoglobin 14.7 g/dL (13.0-16.5); Lymphocyte # 2.11 X10^3/ul (0.83-4.51); Lymphocyte % 27.1 % (19-41); Mean Corp Hgb Conc 34.6 g/dL (32-36); Mean Corpuscular Hgb 31.3 pg (27.0-32.0); Mean Corpuscular Volume 90.4 fL (80-94); Mean Platelet Vol. 9.7 fl (6.2-12.0); Monocyte# 0.56 X10^3/uL; Monocyte% 7.2 % (0-10); NRBC Flagged by Analyzer 0 % (0-5); Neutrophil % 61.7 % (47-70); Platelet Count 328 K/mm3 (150-450); RBC Distribution Width CV 12.6 % (11.6-14.6); RBC Distribution Width SD 41.3 fl (35.1-43.9); White Blood Count 7.8 K/mm3 (4.4-11.0)
[2024-07-12 01:20] LABS: Bacteria 0 SEEN /hpf (None Seen); Mucous, Urine 0 SEEN /hpf (<or=2+); Squamous Epithelial Cells - UA 0 SEEN /hpf (0-5); White Blood Cells 0 SEEN /hpf (0-5)
[2024-07-12 01:23] LABS: Glucose, Dipstick Normal (Normal); Ketone-Dipstick 5 mg/dl (Negative); Leukocyte Esterase-Dipstick Negative /ul (Negative); Nitrite-Dipstick Negative (Negative); Occult Blood-Urine 10 /ul (Negative); Protein-Dipstick 30 mg/dl (Negative); Urine Bilirubin Dipstick Negative (Negative); Urine Urobilinogen Normal (Normal)
--- NOTE | 2024-07-12 01:30 | RAD_ITS ---
PROCEDURE: CHEST 1 VIEW (PORTABLE) 07/12/2024 REASON FOR EXAM: SEIZURE TECHNIQUE: Frontal view of the chest. FINDINGS: The lungs appear clear. The cardiac and mediastinal contours appear within limits. The visualized osseous structures appear within limits. RAD/Chest 1 View (Portable) IMPRESSION: No evidence of acute disease. Reading Location: [id number]
[2024-07-12 01:36] LABS: Color, Urine Yellow (Yellow); Red Blood Cells-Urine 0 SEEN /hpf (0-5); Urine Clarity Clear (Clear)
[2024-07-12] MEDS: hydrALAZINE 20 MG/ML Vial 5 MG IV (01:40)
[2024-07-12 01:42] LABS: ALB/GLOB Ratio 1.8 RATIO (0.9-2.4); AST(SGOT) 22 U/L (<=37); Alanine Aminotransfer ALT/SGPT 21 U/L (<=46); Albumin, Serum 4.5 g/dL (3.5-5.0); Alkaline Phosphatase 72 U/L (40-129); Anion Gap 15 (5-15); BUN 12 mg/dL (4-19); BUN/Creat Ratio 10.9 RATIO (10-20); Calcium,Total 8.8 mg/dL (7.6-11.0); Carbon Dioxide 21.7 mmol/L (21.0-32.0); Chloride 102 mmol/L (98-108); Creatinine, Serum 1.07 mg/dL (0.70-1.20); EST Glomerular Filtration Rate 87 (>60); Estimated Creatinine Clearance 78.67 ml/min (50-250); Globulin 2.5 g/dL (2.2-4.2); Glucose 161 mg/dL (70-99); Magnesium 2.4 mg/dL (1.5-2.2); Potassium 2.9 mmol/L (3.3-5.1); Sodium Level 139 mmol/L (133-145); Total Bilirubin 0.48 mg/dL (0.00-1.30)
[2024-07-12 01:42] LABS: Amphetamine Urine NEGATIVE (<1000 ng/mL); Barbiturate Urine NEGATIVE (< 200 ng/mL); Benzodiazepine Urine NEGATIVE (< 200 ng/mL); Buprenorphine Urine NEGATIVE (< 200 ng/mL); Cocaine Urine NEGATIVE (< 300 ng/mL); Fentanyl, Urine NEGATIVE; Methadone Urine NEGATIVE (< 300 ng/mL); Opiates Urine NEGATIVE (< 300 ng/mL); Oxycodone, Urine NEGATIVE (< 100 ng/mL); PCP Urine NEGATIVE (< 25 ng/mL); THC Urine NEGATIVE (< 50 ng/mL)
[2024-07-12 01:44] LABS: Lactic Acid 2.6 mmol/L (0.0-2.0)
[2024-07-12 01:45] LABS: Alcohol, Blood (Medical)-Serum < 10.1 mg/dL (<=10.0)
[2024-07-12 02:01] LABS: Troponin T High Sensitivity < 6 ng/L (<=22)
[2024-07-12] MEDS: Potassium Chloride Oral Soln 20 MEQ/15 ML UDC 60 MEQ PO (02:48)
--- NOTE | 2024-07-12 04:33 | ED.RN ---
Dr requested neurology consult at [address] through [facility], no doctor call back after consult set up. Tried camille leach no response from neurologist Dorene Mondragon, gave another transfer number to neurology consult , set up without call back Finally contacted [facility] for neurology regional business development manager, waiting to hear back at this time. [phone]
[2024-07-12] MEDS: levETIRAcetam IV 1,000 MG/100 ML BAG 400 MG IV (04:57)
== END 2024-07-12 05:30 | disposition home or self-care (01) ==
PROVIDERS: Emergency Provider Surgery; PCP Family Medicine; Visit Provider Surgery
DX: R56.9 Unspecified convulsions (principal); E87.6 Hypokalemia
CPT/HCPCS: 70450; 71045; 80053; 80307; 81001; 82077; 83605; 83735; 84484; 85025; 93005; 96361; 96365; 96375; 99285; A4216; J2405